=== PATIENT | female | born 2000 | race Hispanic/Latino ===

== ENCOUNTER 2018-04-10 13:39 | Emergency (ER) | payer OTHER, SELFPAY ==
--- NOTE | 2018-04-10 14:54 | RAD REPORT ---
EXAM DESCRIPTION: RAD - Shoulder Left 2 View - 04/10/2018 2:46 pm CLINICAL HISTORY: Left shoulder pain COMPARISON: None. TECHNIQUE: Internal and external rotation views of the left shoulder were obtained. FINDINGS: There is no fracture or dislocation. AC joint is normal in appearance. Acromial humeral mao int space is normal. Growth plate remnants at the humeral head is normal. No abnormal soft tissue laz cification. IMPRESSION: Negative two-view left shoulder examination.
--- NOTE | 2018-04-10 15:07 | EDPHYS ---
Physician Documentation [facility] Name: Key Waters Age: 17 yrs Sex: Female : 2000 Arrival Date: 04/10/2018 Time: 13:42 Bed 9 Private MD: ED Physician Gerald Malik HPI: 04/10 14:20 This 17 yrs old Female presents to ER via Ambulatory with complaints of cp Shoulder Pain, Back Pain. 14:20 The patient or guardian complains of pain, that is acute, swelling, tenderness. cp posterior aspect left shoulder. Context: resulted from an unknown reason, The patient reports no decreased range of motion. Onset: The symptoms/episode began/occurred 2 month(s) ago. Modifying factors: The symptoms are aggravated by movement. 14:20 Associated signs and symptoms: Pertinent positives: neck pain, intermittent radiation cp of pain to left chest, Pertinent negatives: abdominal pain, diaphoresis, Numbness in left arm shortness of breath, tingling, Weakness in left arm. 14:20 Severity of symptoms: in the emergency department the symptoms have improved, cp moderately. Treatment prior to arrival includes: no previous treatment. 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 - Social history:: Smoking status: Patient/guardian denies using tobacco. ROS: 14:25 Constitutional: Negative for body aches, chills, fever, poor PO intake. cp 14:25 Eyes: Negative for injury, pain, redness, and discharge. cp 14:25 ENT: Negative for drainage from ear(s), ear pain, sore throat, difficulty swallowing, difficulty handling secretions. 14:25 Neck: Positive for tenderness, of the left lateral neck, Negative for bony tenderness. 14:25 Cardiovascular: Negative for edema, palpitations. 14:25 Respiratory: Negative for cough, shortness of breath, wheezing. 14:25 Abdomen/GI: Negative for abdominal pain, nausea, vomiting, and diarrhea, black/tarry stool, rectal bleeding. 14:25 Back: Positive for pain at rest, of the left trapezius, left scapular area and left subscapular area, Negative for injury or acute deformity, decreased range of motion. 14:25 MS/extremity: Positive for pain, tenderness, of the left shoulder, Negative for injury or acute deformity, decreased range of motion, paresthesias. 14:25 Skin: Negative for cellulitis, rash. 14:25 Neuro: Negative for altered mental status, dizziness, headache, weakness. 14:25 All other systems are negative. Exam: 14:32 Constitutional: The patient appears in no acute distress, alert, awake, cp non-diaphoretic, non-toxic, well developed, well nourished, obese. 14:32 Head/Face: Normocephalic, atraumatic. cp 14:32 Eyes: Periorbital structures: appear normal, Pupils: equal, round, and reactive to light and accomodation, Extraocular movements: intact throughout, Conjunctiva: normal, no exudate, no injection, Sclera: no appreciated abnormality, Lids and lashes: appear normal, bilaterally. 14:32 ENT: External ear(s): are unremarkable, Ear canal(s): are normal, clear, TM's: bulging, is not appreciated, bilaterally, dullness, bilaterally, erythema, is not appreciated, bilaterally, Nose: is normal, Mouth: Lips: moist, Oral mucosa: pink and intact, moist, Posterior pharynx: is normal, airway is patent, no erythema, no exudate, Voice: is normal. 14:32 Neck: External neck: tenderness, that is mild, of the left posterior aspect of neck, ROM/movement: is normal, is supple, no range of motions limitations, no meningismus, no nuchal rigidity. 14:32 Chest/axilla: Inspection: normal, Palpation: is normal, no crepitus, no tenderness. 14:32 Cardiovascular: Rate: normal, Rhythm: regular, Pulses: Pulses are 2+ in right radial artery and left radial artery. Heart sounds: murmur, not appreciated, rub, not appreciated, gallop, not appreciated, Edema: is not appreciated, JVD: is not appreciated. 14:32 Respiratory: the patient does not display signs of respiratory distress, Respirations: normal, no use of accessory muscles, no retractions, no splinting, no tachypnea, labored breathing, is not present, Breath sounds: are clear throughout, no decreased breath sounds, no stridor, no wheezing. 14:32 Abdomen/GI: Exam negative for discomfort, distension, guarding, Inspection: obese 14:32 Back: pain, that is mild, of the left trapezius, left scapular area and left subscapular area, ROM is normal. 14:32 Skin: cellulitis, is not appreciated, no rash present. 14:32 Neuro: Orientation: to person, place \T\ time. Mentation: lucid, able to follow commands, Cerebellar function: is grossly normal, Motor: moves all fours, strength is normal, Sensation: no obvious gross deficits, Gait: is steady, at a normal pace, without difficulty. Vital Signs: 13:55 BP 144 / 84; Pulse 75; Resp 19; Temp 97.6(TE); Pulse Ox 100% on R/A; Weight 90.72 kg la1 (R); MDM: 14:13 Patient medically screened. cp 15:00 Differential diagnosis: tendonitis, fracture, dislocation, cervical strain, muscle cp spasm. 15:05 Data reviewed: vital signs, nurses notes, radiologic studies, plain films. cp 15:05 Counseling: I had a detailed discussion with the patient and/or guardian regarding: the cp historical points, exam findings, and any diagnostic results supporting the discharge/admit diagnosis, lab results, radiology results, the need for outpatient follow up, a family practitioner, to return to the emergency department if symptoms worsen or persist or if there are any questions or concerns that arise at home. 05 15:30 Order name: Urine Microscopic Only [facility] 04/10 15:30 Order name: Urine Culture [facility] 04/10 14:18 Order name: XRAY Shoulder LEFT 2 view cp 04/10 16:26 Order name: Urine Dipstick--Ancillary (enter results) ag 04/10 16:26 Order name: Urine --Ancillary (enter results) ag 04/10 14:18 Order name: Urine Dipstick-Ancillary (obtain specimen); Complete Time: 15:30 cp 04/10 14:18 Order name: Urine Test (obtain specimen); Complete Time: 15:30 cp Administered Medications: 15:48 Drug: TORadol 60 mg Route: IM; Site: right deltoid; iw Disposition: 04/10/18 15:06 Discharged to Home. Impression: Left Upper Back Pain, Pain in left shoulder, Urinary tract infection, site not specified. - Condition is Stable. - Discharge Instructions: Musculoskeletal Pain, Shoulder Pain, Urinary Tract Infection. - Prescriptions for Cyclobenzaprine 10 mg Oral Tablet - take 1 tablet by ORAL route every 8 hours As needed no driving while taking medication; 20 tablet. Diclofenac Sodium 75 mg Oral Tablet, Delayed Release (E.C.) - take 1 tablet by ORAL route 2 times per day; 20 tablet. Bactrim DS 800- 160 mg Oral Tablet - take 1 tablet by ORAL route every 12 hours for 3 days; 6 tablet. - Work release form, Medication Reconciliation Form, Thank You Letter, Antibiotic Education, Prescription Opioid Use form. - Follow up: Private Physician; When: 2 - 3 days; Reason: Recheck today's complaints. - Problem is new. - Symptoms are unchanged. Addendum: 04/12/2018 09:02 Co-signature as Attending Physician, Gerald Malik MD I agree with the assessment and c sweeney plan of care. Signatures: Dispatcher [employer] Gerald Markham MD MD cha Williams, Irene, RN RN iw Attema, Lee, RN RN la1 Maria D Saleem Corey, PA PA cp Corrections: (The following items were deleted from the chart) 04/10 15:06 15:06 04/10/2018 15:06 Discharged to Home. Impression: Left Upper Back Pain. Condition cp is Stable. Forms are Medication Reconciliation Form, Thank You Letter, Antibiotic Education, Prescription Opioid Use. Follow up: Private Physician; When: 2 - 3 days; Reason: Recheck today's complaints. Problem is new. Symptoms are unchanged. cp 15:28 15:06 04/10/2018 15:06 Discharged to Home. Impression: Left Upper Back Pain; Pain in cp left shoulder. Condition is Stable. Forms are Medication Reconciliation Form, Thank You Letter, Antibiotic Education, Prescription Opioid Use. Follow up: Private Physician; When: 2 - 3 days; Reason: Recheck today's complaints. Problem is new. Symptoms are unchanged. cp 16:08 15:28 04/10/2018 15:06 Discharged to Home. Impression: Left Upper Back Pain; Pain in iw left shoulder; Urinary tract infection, site not specified. Condition is Stable. Discharge Instructions: Musculoskeletal Pain, Shoulder Pain. Prescriptions for Cyclobenzaprine 10 mg Oral Tablet - take 1 tablet by ORAL route every 8 hours As needed no driving while taking medication; 20 tablet, Diclofenac Sodium 75 mg Oral Tablet, Delayed Release (E.C.) - take 1 tablet by ORAL route 2 times per day; 20 tablet. and Forms are Medication Reconciliation Form, Thank You Letter, Antibiotic Education, Prescription Opioid Use. Follow up: Private Physician; When: 2 - 3 days; Reason: Recheck today's complaints. Problem is new. Symptoms are unchanged. cp 16:27 16:08 04/10/2018 15:06 Discharged to Home. Impression: Left Upper Back Pain; Pain in ag left shoulder; Urinary tract infection, site not specified. Condition is Stable. Discharge Instructions: Musculoskeletal Pain, Shoulder Pain, Urinary Tract Infection. Prescriptions for Cyclobenzaprine 10 mg Oral Tablet - take 1 tablet by ORAL route every 8 hours As needed no driving while taking medication; 20 tablet, Diclofenac Sodium 75 mg Oral Tablet, Delayed Release (E.C.) - take 1 tablet by ORAL route 2 times per day; 20 tablet, Bactrim DS 800-160 mg Oral Tablet - take 1 tablet by ORAL route every 12 hours for 3 days; 6 tablet. and Forms are Medication Reconciliation Form, Thank You Letter, Antibiotic Education, Prescription Opioid Use, Work release form. Follow up: Private Physician; When: 2 - 3 days; Reason: Recheck today's complaints. Problem is new. Symptoms are unchanged. iw
--- NOTE | 2018-04-10 15:07 | ER ---
Nurse's Notes [facility] Name: Key Waters Age: 17 yrs Sex: Female : 2000 Arrival Date: 04/10/2018 Time: 13:42 Bed 9 Private MD: Diagnosis: Left Upper Back Pain;Pain in left shoulder;Urinary tract infection, site not specified Presentation: 04/10 13:54 Presenting complaint: Patient states: for the past few weeks my left shoulder sometimes la1 locks up and then I have trouble moving it. It also seems like its lower than the other side. Transition of care: patient was not received from another setting of care. Onset of symptoms was April 10, 2018. Initial Sepsis Screen: Does the patient meet any 2 criteria? No. Patient's initial sepsis screen is negative. Does the patient have a suspected source of infection? No. Patient's initial sepsis screen is negative. Care prior to arrival: None. 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 - Social history:: Smoking status: Patient/guardian denies using tobacco. Screenin:56 Abuse screen: Denies threats or abuse. Nutritional screening: No deficits noted. la1 Tuberculosis screening: No symptoms or risk factors identified. Fall Risk None identified. Assessment: 13:55 General: Appears in no apparent distress. Behavior is calm, cooperative. Pain: Denies la1 pain. Neuro: Level of Consciousness is awake, alert, obeys commands, Oriented to person, place, time, situation. Cardiovascular: Capillary refill < 3 seconds Patient's skin is warm and dry. Musculoskeletal: Circulation, motion, and sensation intact. Capillary refill < 3 seconds, Range of motion: intact in all extremities. Vital Signs: 13:55 BP 144 / 84; Pulse 75; Resp 19; Temp 97.6(TE); Pulse Ox 100% on R/A; Weight 90.72 kg la1 (R); ED Course: 13:42 Patient arrived in ED. mr 13:42 Alden Wlelington DO is Private Physician. mr 13:55 Triage completed. la1 13:55 Arm band placed on left wrist. la1 13:56 Call light in reach. la1 14:12 Gerald Tyler PA is PHCP. cp 14:12 Gerald Malik MD is Attending Physician. cp 14:36 Frances Bethea, RN is Primary Nurse. iw 14:38 XRAY Shoulder LEFT 2 view In Process Unspecified. EDMS 16:07 No provider procedures requiring assistance completed. Patient did not have IV access iw during this emergency room visit. 16:25 Primary Nurse role handed off by Frances Bethea RN ag Administered Medications: 15:48 Drug: TORadol 60 mg Route: IM; Site: right deltoid; iw Outcome: 15:06 Discharge ordered by MD. cp 16:07 Discharged to home ambulatory, with friend. iw 16:07 Condition: good 16:07 Discharge instructions given to patient, family, Instructed on discharge instructions, follow up and referral plans. medication usage, Demonstrated understanding of instructions, follow-up care, medications, Prescriptions given X 3. 16:08 Patient left the ED. iw 16:27 Patient left the ED. ag Signatures: Dispatcher [employer] EDNY Salena Gomez Frances Bethea, RN TRISTIN iw Mateus Middleton RN RN la1 Maria D Saleem ag Gerald Tyler PA PA cp
[2018-04-10] MEDS ORDERED: KETOROLAC 30 MG/ML INJ ONE (15:41)
[2018-04-10 16:08] LABS: Urine Bacteria >50 /HPF (<20); Urine Culture Reflex Order NOT NEEDED; Urine RBC <5 /HPF (NONE SEEN)
[2018-04-10 16:40] LABS: Urine Blood NEGATIVE (NEG); Urine Glucose NEGATIVE (NEG); Urine Protein TRACE (NEG); Urine Specific Gravity 1.025 (1.005-1.030)
== END 2018-04-10 16:27 | disposition home or self-care (01) ==
LOC: ER 13:39
DX: N39.0 Urinary tract infection, site not specified (principal); M54.89 Other dorsalgia
CPT/HCPCS: 81003; 81015; 81025; 87077; 87086; 87088; 87186; 96372; 99283

== ENCOUNTER 2019-05-06 02:10 | Emergency (ER) | payer SELFPAY ==
[2019-05-06] MEDS ORDERED: KETOROLAC 30 MG/ML INJ ONE (02:47)
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
== END 2019-05-06 03:34 | disposition home or self-care (01) ==
LOC: ER 02:10
DX: S30.1XXA Contusion of abdominal wall, initial encounter (principal); V49.9XXA Car occupant (driver) (passenger) injured in unspecified traffic accident, initial encounter
CPT/HCPCS: 96372; 99283